=== PATIENT | female | born 1970 | race Caucasian/White ===

== ENCOUNTER → 2016-11-20 | Outpatient (CLI) | payer OTHER | LOC: CIMAGING 09:35 | PROVIDERS: ATTEND Family Medicine | DX: Z12.31 Encounter for screening mammogram for malignant neoplasm of breast (principal) | CPT/HCPCS: G0202 ==

== ENCOUNTER 2018-03-31 16:10 | Emergency (ER) | payer OTHER ==
--- NOTE | 2018-03-31 16:39 | EDPHY ---
H & P Stated Complaint: Pt. was walking into wk this am,fell, injury lt should, hip,pelvis Time Seen by Provider: 03/31/18 16:27 HPI/ROS: HPI: The patient presents with fall which occurred earlier today at about 9:15 a.m., now with left shoulder and left hip pain. The patient presents via private vehicle for workman's compensation evaluation. She was getting out of a Jeep to go to work this morning and in the parking lot slipped and fell on the ice, feet sliding in front of her and landing on her left side. She was able to stand and walk. She left work early because of progressive pain which she describes as aching, constant, worse with movement of both her left shoulder and hip. She is ambulatory. Right-hand dominant. REVIEW OF SYSTEMS 10 systems were reviewed and negative with the exception of the elements mentioned in the history of present illness. PMHx: No prior injuries to left shoulder or left pelvis TRAUMA PHYSICAL General Appearance: Alert, no distress Head: Atraumatic Eyes: Pupils equal, round, reactive Respiratory: Breathing comfortably Cardiovascular: Regular rate and rhythm Abdomen: Abdomen is soft and non-tender, pelvis stable Skin: No lacerations, No abrasion Back: No midline T/L/S pain Extremities: Left shoulder is tender at the anterior joint space with full range of motion though with pain with flexion, AB duction, external rotation; left hip is tender on the lateral surface with pain with internal rotation and flexion Neurological: A&Ox3, GCS=15,normal motor function with 5/5 strength in all 4 extremities, normal sensory exam Source: Patient Exam Limitations: No limitations - Personal History LMP (Females 10-55): 1-7 Days Ago Current Tetanus Diphtheria and Acellular Pertussis (TDAP): No Tetanus Vaccine Date: 2008 - Medical/Surgical History Hx Asthma: No Hx Chronic Respiratory Disease: No Hx Diabetes: No Hx Cardiac Disease: No Hx Renal Disease: No Hx Cirrhosis: No Hx Alcoholism: No Hx HIV/AIDS: No Hx Splenectomy or Spleen Trauma: No Other PMH: Med hx-none. Surg-liss,acl-rt,myomectomy - Social History Smoking Status: Unknown if ever smoked Constitutional: Initial Vital Signs Temperature (C) 37.2 C 03/31/18 16:17 Heart Rate 60 03/31/18 16:17 Respiratory Rate 16 03/31/18 16:17 Blood Pressure 136/84 H 03/31/18 16:17 O2 Sat (%) 96 03/31/18 16:17 O2 Delivery Mode Room Air Allergies/Adverse Reactions: morphine [Morphine] Adverse Reaction (Intermediate, Verified 03/31/18 16:16) NAUSEA Home Medications: Medication Instructions Recorded Aspirin 81mg (*) 03/31/18 Vitamin D3 03/31/18 Medical Decision Making - Diagnostics Imaging Results: Imaging Impressions Hip X-Ray 03/31/18 16:34 Impression: No acute abnormality seen about the pelvis with attention left hip. Series Shoulder X-Ray 03/31/18 16:35 Impression: Normal left shoulder series. Differential Diagnosis: This is a 47-year-old female who presents with a fall about 8 hr ago when getting out of her car and slipping in an icy parking lot, falling onto her left side. She now has left shoulder and left hip pain. She has full range of motion of both joints though it is painful to her. She has no external signs of trauma. She is neurovascularly intact. Differential diagnosis includes rotator cuff injury of her left shoulder, left hip sprain, pubic rami fracture. She had taken ibuprofen prior to arrival in declines any pain medication. X-rays were obtained Departure - Departure Disposition: Home, Routine, Self-Care Clinical Impression: Fall from slipping on ice Qualifiers: Encounter type: initial encounter Qualified Code(s): W00.9XXA - Unspecified fall due to ice and snow, initial encounter Sprain of left shoulder Qualifiers: Encounter type: initial encounter Shoulder sprain type: unspecified sprain Qualified Code(s): S43.402A - Unspecified sprain of left shoulder joint, initial encounter Sprain of left hip Qualifiers: Encounter type: initial encounter Qualified Code(s): S73.102A - Unspecified sprain of left hip, initial encounter Condition: Good Instructions: Shoulder Sprain (ED), Hip Sprain (ED) Additional Instructions: I recommend you use ibuprofen 400 mg with acetaminophen 650 mg every 6 hr as needed for pain. You should be better in the next few days. If your pain continues, I would recommend you follow up with an orthopedist. I have listed the name of the on-call Dr. You can call for an appointment. If this is a workman's comp injury, you may need to go through the workmen's Comp doctor provided to you by your workplace. Referrals: HATTIE BARRIOS [Primary Care Provider] - As per Instructions Martin Pizarro MD [Medical Doctor] - As per Instructions
[2018-03-31 17:48] VITALS: BP 123/73
== END 2018-03-31 17:25 | disposition home or self-care (01) ==
LOC: CED 16:10
DX: S43.402A Unspecified sprain of left shoulder joint, initial encounter (principal); S73.102A Unspecified sprain of left hip, initial encounter; W00.0XXA Fall on same level due to ice and snow, initial encounter; Y92.481 Parking lot as the place of occurrence of the external cause; Y99.0 Civilian activity done for income or pay
CPT/HCPCS: 73030-PO; 73501-PO; 99284-ER